=== PATIENT | male | born 1945 | race Caucasian/White ===

== ENCOUNTER → 2018-12-21 | Outpatient (CLI) | payer MEDICARE, OTHER ==
[~2018-12-21] MED LIST: ASPI-650 PO; LOSA100T3 PO; METF500T24 PO; SENN1TAB5 PO; SIMV40TA3 PO; TERA10CA3 PO
== END | disposition home or self-care (01) ==
LOC: NUC 08:53
PROVIDERS: ATTEND Internal Medicine
DX: E83.52 Hypercalcemia (principal)
CPT/HCPCS: 78070; A9500